=== PATIENT | male | born 1970 | race Caucasian/White ===

== ENCOUNTER 2016-05-04 19:59 | Inpatient (IN) | payer OTHER ==
[2016-05-04 20:48] VITALS: BMI 23.0
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
[2016-05-04] MEDS ORDERED: LOPERAMIDE HCL 2 MG CAPSULE PO PRN (20:55)
[2016-05-04] MEDS ORDERED: MAG HYDROX/AL HYDROX/SIMETH 30 ML UNIT-DOSE CUP PO PRN (20:55)
[2016-05-04] MEDS ORDERED: IBUPROFEN 400 MG TABLET (FP) PO PRN (20:55)
[2016-05-04] MEDS ORDERED: NICOTINE POLACRILEX 2 MG GUM BC PRN (20:55)
[2016-05-04] MEDS ORDERED: guaiFENesin/D-METHORPHAN HB 10 ML UNIT-DOSE CUPS PO PRN (20:55)
[2016-05-04] MEDS ORDERED: MENTHOL/PHENOL 1 EACH UD MM PRN (20:55)
[2016-05-04] MEDS ORDERED: P-EPHED 60MG/TRIPROLIDI 2.5MG TABLET PO PRN (20:55)
[2016-05-04] MEDS ORDERED: METHADONE HCL 10 MG TABLET (FOR DETOX USE ONLY) PO ONE ×2 (20:55→23:00)
[2016-05-04] MEDS ORDERED: diphenhydrAMINE HCL 50 MG CAPSULE PO PRN (20:55)
[2016-05-04] MEDS ORDERED: MAGNESIUM HYDROX 2400MG/30ML ORAL SUSPENSION 30 ML CUP PO PRN (20:55)
[2016-05-04] MEDS ORDERED: ACETAMINOPHEN 325 MG TABLET (FP) PO PRN (20:55)
[2016-05-04] MEDS ORDERED: MAGNESIUM CITRATE 300 ML BOTTLE PO PRN (20:55)
[2016-05-04] MEDS ORDERED: cloNIDine HCL 0.1 MG TABLET PO PRN (20:57)
[2016-05-04] MEDS: RANITIDINE HCL 150 MG TABLET (FP) PO SCH (22:10)
[2016-05-04] MEDS: THIAMINE HCL 100 MG TABLET (FP) PO SCH (22:11)
[2016-05-04] MEDS: chlordiazePOXIDE HCL 25 MG CAPSULE PO SCH (22:11)
[2016-05-05] MEDS: chlordiazePOXIDE HCL 25 MG CAPSULE PO SCH ×4 (06:25→22:04)
[2016-05-05] MEDS: chlordiazePOXIDE HCL 25 MG CAPSULE PO PRN ×2 (08:49→14:01)
[2016-05-05 09:39] LABS: MCH 37.6 pg (25.7-33.7); MCHC 34.1 g/dl (32.0-35.9); MEAN CELL VOLUME 110.3 fl (80-96); MEAN PLT VOLUME 9.2 fl (7.5-11.1); PLATELET COUNT 221 K/MM3 (134-434); RDW 12.7 % (11.9-15.9); WHITE BLOOD COUNT 4.1 K/mm3 (4.0-10.0)
[2016-05-05 09:58] LABS: ALBUMIN 3.1 g/dl (3.4-5.0); ALK PHOS 122 U/L (45-117); ANION GAP 10 (8-16); BILIRUBIN,TOTAL 1.1 mg/dL (0.2-1.0); CALCIUM 8.4 mg/dL (8.5-10.1); CO2 29 mmol/L (21-32); CREATININE 0.6 mg/dL (0.7-1.3); GLUCOSE,RANDOM 78 mg/dL (74-106); SGOT/AST 182 U/L (15-37); SGPT/ALT 71 U/L (12-78); TOT PROT 7.1 g/dl (6.4-8.2)
[2016-05-05] MEDS ORDERED: METHADONE HCL 10 MG TABLET (FOR DETOX USE ONLY) PO SCH (10:00)
--- NOTE | 2016-05-05 10:37 | EKG ---
Test Reason : Blood Pressure : / mmHG Vent. Rate : 064 BPM Atrial Rate : 064 BPM P-R Int : 122 ms QRS Dur : 090 ms QT Int : 412 ms P-R-T Axes : -01 034 030 degrees QTc Int : 425 ms NORMAL SINUS RHYTHM NORMAL ECG NO PREVIOUS ECGS AVAILABLE Confirmed by PARKER HENRY MD ([id number]) on 05/05/2016 10:37:03 AM Referred By: Confirmed By:PARKER HENRY MD
[2016-05-05] MEDS: PRENATAL VITAMINS W/ FOLIC ACID TABLET (FP) PO SCH (10:40)
[2016-05-05] MEDS: RANITIDINE HCL 150 MG TABLET (FP) PO SCH ×2 (10:40→22:04)
[2016-05-05] MEDS: NICOTINE 21 MG/24 HOURS TOPICAL PATCH TD SCH (10:42)
[2016-05-05] MEDS ORDERED: ALBUTEROL SO4 6.7 GM HFA INHALER IH PRN (13:29)
[2016-05-05] MEDS ORDERED: ONDANSETRON *ODT* 4 MG TABLET SL PRN (13:35)
--- NOTE | 2016-05-05 13:35 | PN ---
[facility] CIWA - CIWA Score Nausea/Vomitin-No Nausea/No Vomiting Muscle Tremors: 4-Moderate,w/Arms Extend Anxiety: 4-Mod. Anxious/Guarded Agitation: 4-Moderately Restless Paroxysmal Sweats: 3 Orientation: 0-Oriented Tacttile Disturbances: 0-None Auditory Disturbances: 0-None Visual Disturbances: 0-None Headache: 0-None Present CIWA-Ar Total Score: 15 S COWS - Scale Resting Pulse: 1= [place] 81-100 Sweatin=Flushed/Facial Moisture Restless Observation: 1= Difficult to Sit Still Pupil Size: 0= Normal to Room Light Bone or Joint Aches: 2= Severe Diffuse Aches Runny Nose/ Eye Tearin= Nasal Congestion GI Upset > 30mins: 1= Stomach Cramp Tremor Observation of Outstretched Hands: 2= Slight Tremor Visible Yawning Observation: 2= >3x During Session Anxiety or Irritability: 2=Irritable/Anxious Goose Flesh Skin: 3=Piloerection COWS Score: 17 S Progress Note (SOAP) Subjective: wheezing sweats chills shakes interrupted sleep agitation irritable body aches Objective: 05/05/16 13:33 Vital Signs Temperature 98.8 F 05/05/16 10:14 Pulse Rate 92 H 05/05/16 10:14 Respiratory Rate 18 05/05/16 10:14 Blood Pressure 132/91 05/05/16 10:14 O2 Sat by Pulse Oximetry (%) Laboratory Tests 05/05/16 05/05/16 06:30 06:30 WBC 4.1 D RBC 3.36 L D Hgb 12.6 D Hct 37.0 MCV 110.3 H MCHC 34.1 RDW 12.7 D Plt Count 221 D MPV 9.2 Macrocytosis 4+ Morphology Comment Slide scanned Sodium 142 Potassium 3.4 L Chloride 103 Carbon Dioxide 29 Anion Gap 10 BUN 6 L Creatinine 0.6 L D Creat Clearance w eGFR > 60 Random Glucose 78 D Calcium 8.4 L Total Bilirubin 1.1 H D AST 182 H D ALT 71 Alkaline Phosphatase 122 H Total Protein 7.1 Albumin 3.1 L D K+ 3.4; kdur 40meq x 4 days ordered elevated ast 182; tylenol d/c rest of labs pending re-order labs Assessment: 02/09/17 13:34 withdrawal sx Plan: continue detox increase fluids duoneb ordered albuterol pump prn clonidine 0.1mg bid kdur 40meq x 4 days zofran prn ensure plus 120ml po bid
[2016-05-05] MEDS ORDERED: POTASSIUM CHLORIDE TABS 20 MEQ TABLET.ER (FP) PO ONE (14:00)
[2016-05-05] MEDS: CYCLOBENZAPRINE HCL 10 MG TABLET (FP) PO PRN ×2 (14:00→22:04)
[2016-05-05] MEDS: THIAMINE HCL 100 MG TABLET (FP) PO SCH (22:04)
[2016-05-05] MEDS: cloNIDine HCL 0.1 MG TABLET PO SCH (22:04)
[2016-05-06] MEDS: chlordiazePOXIDE HCL 25 MG CAPSULE PO PRN (03:24)
[2016-05-06] MEDS: chlordiazePOXIDE HCL 25 MG CAPSULE PO SCH ×2 (05:38→10:11)
[2016-05-06] MEDS ORDERED: METHADONE HCL 5 MG TABLET (FOR DETOX USE ONLY) PO SCH (10:00)
[2016-05-06] MEDS ORDERED: POTASSIUM CHLORIDE TABS 20 MEQ TABLET.ER (FP) PO SCH (10:00)
[2016-05-06 10:01] LABS: BASOPHIL 0.6 % (0-2.0); EOSINOPHIL 4.9 % (0-4.5); MCH 37.4 pg (25.7-33.7); MCHC 33.8 g/dl (32.0-35.9); MEAN CELL VOLUME 110.7 fl (80-96); MEAN PLT VOLUME 9.6 fl (7.5-11.1); PLATELET COUNT 199 K/MM3 (134-434); WHITE BLOOD COUNT 4.7 K/mm3 (4.0-10.0)
[2016-05-06] MEDS: RANITIDINE HCL 150 MG TABLET (FP) PO SCH (10:09)
[2016-05-06] MEDS: NICOTINE 21 MG/24 HOURS TOPICAL PATCH TD SCH (10:10)
[2016-05-06] MEDS: PRENATAL VITAMINS W/ FOLIC ACID TABLET (FP) PO SCH (10:10)
[2016-05-06 10:11] LABS: ALBUMIN 2.9 g/dl (3.4-5.0); ANION GAP 7 (8-16); CALCIUM 8.7 mg/dL (8.5-10.1); CO2 32 mmol/L (21-32); GLUCOSE,RANDOM 93 mg/dL (74-106)
[2016-05-06 10:13] LABS: ALK PHOS 126 U/L (45-117); BILIRUBIN,TOTAL 1.9 mg/dL (0.2-1.0); CREATININE 0.6 mg/dL (0.7-1.3); SGOT/AST 116 U/L (15-37); SGPT/ALT 58 U/L (12-78)
[2016-05-06 10:34] VITALS: BP 117/90; PULSE 70; TEMP 97.4
[2016-05-06] MEDS: ALBUTEROL SO4 2.5/IPRATROPIUM 0.5 INH SOL 3 ML VIAL.NEB. NEB SCH (11:01)
--- NOTE | 2016-05-06 11:01 | PN ---
[facility] CIWA - CIWA Score Nausea/Vomitin-No Nausea/No Vomiting Muscle Tremors: 4-Moderate,w/Arms Extend Anxiety: 4-Mod. Anxious/Guarded Agitation: 4-Moderately Restless Paroxysmal Sweats: 3 Orientation: 0-Oriented Tacttile Disturbances: 0-None Auditory Disturbances: 0-None Visual Disturbances: 0-None Headache: 0-None Present CIWA-Ar Total Score: 15 S COWS - Scale Resting Pulse: 0= [place] 80 or Below Sweatin=Flushed/Facial Moisture Restless Observation: 1= Difficult to Sit Still Pupil Size: 0= Normal to Room Light Bone or Joint Aches: 2= Severe Diffuse Aches Runny Nose/ Eye Tearin= Nasal Congestion GI Upset > 30mins: 1= Stomach Cramp Tremor Observation of Outstretched Hands: 1= Tremor [place], Not Seen Yawning Observation: 2= >3x During Session Anxiety or Irritability: 2=Irritable/Anxious Goose Flesh Skin: 0=Smooth Skin COWS Score: 12 [facility] Progress Note (SOAP) Subjective: irritable agitation anxiety sweats interrupted sleep Objective: 05/06/16 11:03 Vital Signs Temperature 97.4 F L 05/06/16 10:34 Pulse Rate 70 05/06/16 10:34 Respiratory Rate 18 05/06/16 10:34 Blood Pressure 117/90 05/06/16 10:34 O2 Sat by Pulse Oximetry (%) Laboratory Tests 05/05/16 05/05/16 05/05/16 06:30 06:30 06:30 WBC 4.1 D RBC 3.36 L D Hgb 12.6 D Hct 37.0 MCV 110.3 H MCHC 34.1 RDW 12.7 D Plt Count 221 D MPV 9.2 Neutrophils % Lymphocytes % Monocytes % Eosinophils % Basophils % Macrocytosis 4+ Morphology Comment Slide scanned Sodium 142 Potassium 3.4 L Chloride 103 Carbon Dioxide 29 Anion Gap 10 BUN 6 L Creatinine 0.6 L D Creat Clearance w eGFR > 60 Random Glucose 78 D Calcium 8.4 L Total Bilirubin 1.1 H D AST 182 H D ALT 71 Alkaline Phosphatase 122 H Total Protein 7.1 Albumin 3.1 L D RPR Titer Nonreactive 05/06/16 05/06/16 07:00 07:00 WBC 4.7 RBC 3.48 L Hgb 13.0 Hct 38.5 MCV 110.7 H MCHC 33.8 RDW 13.0 Plt Count 199 MPV 9.6 Neutrophils % 47.0 Lymphocytes % 39.1 Monocytes % 8.4 Eosinophils % 4.9 H Basophils % 0.6 Macrocytosis Morphology Comment Sodium 143 Potassium 3.9 Chloride 104 Carbon Dioxide 32 Anion Gap 7 L BUN 8 D Creatinine 0.6 L Creat Clearance w eGFR > 60 Random Glucose 93 Calcium 8.7 Total Bilirubin 1.9 H D AST 116 H D ALT 58 Alkaline Phosphatase 126 H Total Protein 7.0 Albumin 2.9 L RPR Titer awake/alert ambulating no acute distress Assessment: 05/06/16 11:05 withdrawal sx Plan: continue detox increase fluids
[2016-05-06] MEDS: cloNIDine HCL 0.1 MG TABLET PO SCH (11:02)
--- NOTE | 2016-05-06 11:16 | PN ---
S Progress Note Note: pt refused to continue detox states i need to leave; signed out AMA.
--- NOTE | 2016-05-06 11:19 | DS ---
[facility] Detox Discharge Summary Admission Date: 05/04/16 Discharge Date: 05/06/16 (pt did not complete detox) - History Present History: Alcohol Dependence, Opioid Dependence - Physical Exam Results Vital Signs: Vital Signs Temperature 97.4 F L 05/06/16 10:34 Pulse Rate 70 05/06/16 10:34 Respiratory Rate 18 05/06/16 10:34 Blood Pressure 117/90 05/06/16 10:34 O2 Sat by Pulse Oximetry (%) - Treatment Hospital Course: Detoxed Safely, Responded well - Medication Discharge Medications: Ambulatory Orders NK [No Known Home Medication] 10/08/14 - Diagnosis (1) Alcohol dependence with uncomplicated withdrawal Current Visit: Yes Status: Chronic (2) GERD (gastroesophageal reflux disease) Current Visit: Yes Status: Chronic Qualifiers: Esophagitis presence: without esophagitis Qualified Code(s): K21.9 - Gastro-esophageal reflux disease without esophagitis (3) Nicotine dependence Current Visit: Yes Status: Chronic Qualifiers: Nicotine product type: cigarettes Substance use status: uncomplicated Qualified Code(s): F17.210 - Nicotine dependence, cigarettes, uncomplicated (4) Opioid dependence with withdrawal Current Visit: Yes Status: Chronic (5) Weight loss Current Visit: Yes Status: Acute (6) Hepatitis C antibody positive in blood Current Visit: Yes Status: Resolved - AMA Did Patient Leave Against Medical Advice: Yes
[2016-05-06] MEDS ORDERED: INFLUENZA VACCINE 60 MCG/0.5 ML (P/F DISP.SYRIN 16-17) IM ONE (12:00)
[2016-05-06] MEDS ORDERED: INFLUENZA VACCINE 45 MCG/0.5 ML (MDV 16-17) IM ONE (12:00)
[2016-05-06] MEDS ORDERED: PNEUMOCOCCAL 23 VACCINE 0.5 ML VIAL IM ONE (12:00)
[2016-05-06] MEDS ORDERED: PNEUMOC 13-VAL CONJ-DIP CRM/PF 0.5 ML DISP.SYRIN IM ONE (12:00)
[2016-05-06] MEDS ORDERED: chlordiazePOXIDE 5 MG CAPSULE PO SCH (23:00)
[2016-05-07] MEDS ORDERED: chlordiazePOXIDE HCL 10 MG CAPSULE PO SCH (23:00)
[2016-05-08] MEDS ORDERED: METHADONE HCL 10 MG TABLET (FOR DETOX USE ONLY) PO SCH (10:00)
[2016-05-09] MEDS ORDERED: METHADONE HCL 5 MG TABLET (FOR DETOX USE ONLY) PO SCH (06:00)
== END 2016-05-06 11:46 | disposition left against medical advice (07) | DRG 770 ==
LOC: YASAS 19:59 → Y6N 21:20
PROVIDERS: ADMIT Internal Medicine; ATTEND Internal Medicine Addiction Medicine
PROC: HZ2ZZZZ Detoxification Services for Substance Abuse Treatment (ICD-10-PCS; principal; 2016-05-06)
DX: F11.23 Opioid dependence with withdrawal (principal); F10.230 Alcohol dependence with withdrawal, uncomplicated; F17.210 Nicotine dependence, cigarettes, uncomplicated; B18.2 Chronic viral hepatitis C; K21.9 Gastro-esophageal reflux disease without esophagitis; R63.4 Abnormal weight loss; Z68.23 Body mass index [BMI] 23.0-23.9, adult
CPT/HCPCS: 36415; 80053; 85025; 85027; 86593; 93005; 93010

== ENCOUNTER 2019-12-02 16:09 | Inpatient (IN) | payer OTHER ==
[2019-12-02 17:20] VITALS: BMI 23.1
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
[2019-12-02] MEDS ORDERED: MAGNESIUM CITRATE 300 ML BOTTLE PO PRN (18:37)
[2019-12-02] MEDS ORDERED: MENTHOL/PHENOL 1 EACH UD MM PRN (18:37)
[2019-12-02] MEDS ORDERED: BISMUTH SUBSALICYLATE 524 MG/30 ML UD PO PRN (18:37)
[2019-12-02] MEDS ORDERED: MAG HYDROX/AL HYDROX/SIMETH 30 ML UNIT-DOSE CUP PO PRN (18:37)
[2019-12-02] MEDS ORDERED: ONDANSETRON *ODT* 4 MG TABLET SL ONE (18:37)
[2019-12-02] MEDS ORDERED: METHOCARBAMOL 500 MG TABLET PO PRN (18:37)
[2019-12-02] MEDS ORDERED: IBUPROFEN 400 MG TABLET (FP) PO PRN (18:37)
[2019-12-02] MEDS ORDERED: NICOTINE POLACRILEX 2 MG GUM BUC PRN (18:37)
[2019-12-02] MEDS ORDERED: MAGNESIUM HYDROX 2400MG/30ML ORAL SUSPENSION 30 ML CUP PO PRN (18:37)
[2019-12-02] MEDS ORDERED: ACETAMINOPHEN 325 MG TABLET (FP) PO PRN (18:37)
[2019-12-02] MEDS ORDERED: guaiFENesin 200 MG/10 ML 10 ML UNIT-DOSE CUPS PO SCH (18:45)
[2019-12-02] MEDS ORDERED: ALBUTEROL SO4 HFA INHALER IH PRN (18:50)
[2019-12-02] MEDS: cloNIDine HCL 0.1 MG TABLET PO PRN (19:27)
[2019-12-02] MEDS: chlordiazePOXIDE HCL 25 MG CAPSULE PO PRN (19:27)
[2019-12-02] MEDS: guaiFENesin 200 MG/10 ML 10 ML UNIT-DOSE CUPS PO SCH ×2 (19:32→23:15)
[2019-12-02] MEDS: BACITRACIN 0.9 GM PACKET TP SCH (19:34)
[2019-12-02] MEDS ORDERED: METHADONE HCL 5 MG TABLET (FOR DETOX USE ONLY) ONE (20:52)
[2019-12-02] MEDS ORDERED: METHADONE HCL 10 MG TABLET (FOR DETOX USE ONLY) ONE (20:53)
[2019-12-02] MEDS ORDERED: METHADONE (DETOX) 20 MG, METHADONE (DETOX) 5 MG PO ONE (22:00)
[2019-12-02] MEDS ORDERED: METHADONE HCL 10 MG TABLET (FOR DETOX USE ONLY) PO ONE (22:00)
[2019-12-02] MEDS: THIAMINE HCL 100 MG TABLET (FP) PO SCH (22:12)
[2019-12-02] MEDS: chlordiazePOXIDE HCL 25 MG CAPSULE PO SCH (22:13)
[2019-12-02] MEDS: MELATONIN 5 MG TABLETS PO SCH (22:17)
[2019-12-03] MEDS: chlordiazePOXIDE HCL 25 MG CAPSULE PO SCH ×4 (06:14→22:29)
[2019-12-03] MEDS: guaiFENesin 200 MG/10 ML 10 ML UNIT-DOSE CUPS PO SCH ×3 (06:16→18:41)
[2019-12-03] MEDS ORDERED: METHADONE HCL 5 MG TABLET (FOR DETOX USE ONLY) ONE (09:00)
[2019-12-03] MEDS ORDERED: METHADONE HCL 10 MG TABLET (FOR DETOX USE ONLY) ONE (09:01)
--- NOTE | 2019-12-03 09:20 | PN ---
[facility] CIWA - CIWA Score Nausea/Vomitin-No Nausea/No Vomiting Muscle Tremors: 3 Anxiety: 2 Agitation: 2 Paroxysmal Sweats: 2 Orientation: 0-Oriented Tacttile Disturbances: 0-None Auditory Disturbances: 0-None Visual Disturbances: 0-None Headache: 0-None Present CIWA-Ar Total Score: 9 BHS COWS - Scale Resting Pulse: 0= [place] 80 or Below Sweatin= Streaming Sweat Restless Observation: 1= Difficult to Sit Still Pupil Size: 0= Normal to Room Light Bone or Joint Aches: 1= Mild Discomfort Runny Nose/ Eye Tearin= Nasal Congestion GI Upset > 30mins: 1= Stomach Cramp Tremor Observation of Outstretched Hands: 1= Tremor [place], Not Seen Yawning Observation: 1= 1-2x During Session Anxiety or Irritability: 2=Irritable/Anxious Goose Flesh Skin: 0=Smooth Skin COWS Score: 12 S Progress Note (SOAP) Subjective: sweats shakes body aches interrupted sleep agitation anxiety nausea Objective: 12/03/19 09:19 Vital Signs Temperature 98.2 F 12/03/19 05:59 Pulse Rate 58 L 12/03/19 05:59 Respiratory Rate 18 12/03/19 05:59 Blood Pressure 138/78 12/03/19 05:59 O2 Sat by Pulse Oximetry (%) 98 12/03/19 05:59 labs pending aaox3 ambulating no acute distress Assessment: 12/03/19 09:20 withdrawals Plan: continue detox increase fluids pending labs
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
[2019-12-03] MEDS ORDERED: METHADONE (DETOX) 20 MG, METHADONE (DETOX) 5 MG PO ONE (10:00)
[2019-12-03] MEDS: PRENATAL VITAMINS W/ FOLIC ACID TABLET (FP) PO SCH (10:26)
[2019-12-03] MEDS: NICOTINE 21 MG/24 HOURS TOPICAL PATCH TD SCH (10:26)
[2019-12-03] MEDS: BACITRACIN 0.9 GM PACKET TP SCH (10:27)
--- NOTE | 2019-12-03 11:55 | EKG ---
Test Reason : Blood Pressure : / mmHG Vent. Rate : 052 BPM Atrial Rate : 052 BPM P-R Int : 146 ms QRS Dur : 086 ms QT Int : 482 ms P-R-T Axes : 031 027 038 degrees QTc Int : 448 ms SINUS BRADYCARDIA OTHERWISE NORMAL ECG Confirmed by MD MARY LOU, JACKSON ([id number]) on 12/03/2019 11:54:30 AM Referred By: Confirmed By:JACKSON BARRETO MD
[2019-12-03 12:26] LABS: HEMATOCRIT 38.8 % (35.4-49); HEMOGLOBIN 13.2 GM/dL (11.7-16.9); MCH 35.8 pg (25.7-33.7); MCHC 34.1 g/dl (32.0-35.9); MEAN CELL VOLUME 105.1 fl (80-96); MEAN PLT VOLUME 8.8 fl (7.5-11.1); PLATELET COUNT 167 K/MM3 (134-434); RBC 3.69 M/mm3 (4.00-5.60); RDW 16.6 % (11.9-15.9); WHITE BLOOD COUNT 6.9 K/mm3 (4.0-10.0)
[2019-12-03 12:40] LABS: ALBUMIN 3.3 g/dl (3.4-5.0); BILIRUBIN,TOTAL 1.7 mg/dL (0.2-1); BLOOD UREA NITROGEN 13.2 mg/dL (7-18); CALCIUM 8.7 mg/dL (8.5-10.1); CREATININE 0.8 mg/dL (0.55-1.3); TOT PROT 7.2 g/dl (6.4-8.2)
[2019-12-03] MEDS: GABAPENTIN 300 MG CAPSULE PO SCH ×2 (15:17→22:29)
[2019-12-03 16:21] LABS: PH,URINE 6.5 (5.0-8.0); URINE APPEARANCE CLOUDY; URINE BILIRUBIN 1+ (NEGATIVE); URINE COLOR DK YELLOW; URINE GLUCOSE (UA) NEGATIVE (NEGATIVE); URINE KETONE NEGATIVE (NEGATIVE); URINE LEUK ESTERASE NEGATIVE (NEGATIVE); URINE NITRITE NEGATIVE (NEGATIVE); URINE PROTEIN NEGATIVE (NEGATIVE); URINE UROBILINOGEN 4.0 E.U/dl mg/dL (0.2-1.0)
[2019-12-03] MEDS: chlordiazePOXIDE HCL 25 MG CAPSULE PO PRN (19:19)
[2019-12-03] MEDS: THIAMINE HCL 100 MG TABLET (FP) PO SCH (22:29)
[2019-12-03] MEDS: AMITRIPTYLINE HCL 25 MG TABLET PO SCH (22:29)
[2019-12-03] MEDS: MELATONIN 5 MG TABLETS PO SCH (22:30)
[2019-12-03] MEDS: ACETAMINOPHEN 325 MG TABLET (FP) PO PRN (22:55)
[2019-12-03] MEDS: cloNIDine HCL 0.1 MG TABLET PO PRN (23:51)
[2019-12-04] MEDS: guaiFENesin 200 MG/10 ML 10 ML UNIT-DOSE CUPS PO SCH ×4 (00:10→19:02)
[2019-12-04] MEDS: GABAPENTIN 300 MG CAPSULE PO SCH ×3 (06:28→22:23)
[2019-12-04] MEDS: chlordiazePOXIDE HCL 25 MG CAPSULE PO SCH ×4 (06:28→22:23)
[2019-12-04] MEDS ORDERED: METHADONE HCL 10 MG TABLET (FOR DETOX USE ONLY) PO ONE (10:00)
[2019-12-04] MEDS: PRENATAL VITAMINS W/ FOLIC ACID TABLET (FP) PO SCH (10:07)
[2019-12-04] MEDS: BACITRACIN 0.9 GM PACKET TP SCH (10:07)
[2019-12-04] MEDS: NICOTINE 21 MG/24 HOURS TOPICAL PATCH TD SCH (10:07)
--- NOTE | 2019-12-04 10:43 | PN ---
S CIWA - CIWA Score Nausea/Vomitin-No Nausea/No Vomiting Muscle Tremors: 2 Anxiety: 1-Mildly Anxious Agitation: 2 Paroxysmal Sweats: 2 Orientation: 0-Oriented Tacttile Disturbances: 0-None Auditory Disturbances: 0-None Visual Disturbances: 0-None Headache: 0-None Present CIWA-Ar Total Score: 7 BHS COWS - Scale Resting Pulse: 0= [place] 80 or Below Sweatin= Chills/Flushing Restless Observation: 1= Difficult to Sit Still Pupil Size: 0= Normal to Room Light Bone or Joint Aches: 1= Mild Discomfort Runny Nose/ Eye Tearin= Nasal Congestion GI Upset > 30mins: 0= None Tremor Observation of Outstretched Hands: 0= None Yawning Observation: 1= 1-2x During Session Anxiety or Irritability: 1=Feels Anxious/Irritable Goose Flesh Skin: 0=Smooth Skin COWS Score: 6 BHS Progress Note (SOAP) Subjective: headache body aches sweats irritable Objective: 12/04/19 10:40 Vital Signs Temperature 97.8 F 12/04/19 09:03 Pulse Rate 53 L 12/04/19 09:03 Respiratory Rate 19 12/04/19 09:03 Blood Pressure 111/59 L 12/04/19 09:03 O2 Sat by Pulse Oximetry (%) 96 12/04/19 09:03 Laboratory Tests 12/03/19 12/03/19 12/03/19 07:45 07:45 07:45 WBC 6.9 RBC 3.69 L Hgb 13.2 Hct 38.8 MCV 105.1 H MCH 35.8 H MCHC 34.1 RDW 16.6 H Plt Count 167 MPV 8.8 Sodium 138 Potassium 4.0 Chloride 99 Carbon Dioxide 34 H Anion Gap 4 L BUN 13.2 Creatinine 0.8 Est GFR (CKD-EPI)AfAm 121.57 Est GFR (CKD-EPI)NonAf 104.89 Random Glucose 87 Calcium 8.7 Total Bilirubin 1.7 H AST 68 H ALT 40 Alkaline Phosphatase 123 H Total Protein 7.2 Albumin 3.3 L Urine Color Urine Appearance Urine pH Ur Specific [place] Urine Protein Urine Glucose (UA) Urine Ketones Urine Blood Urine Nitrite Urine Bilirubin Urine Urobilinogen Ur Leukocyte Esterase Syphilis Serology Non-reactive 12/03/19 09:50 WBC RBC Hgb Hct MCV MCH MCHC RDW Plt Count MPV Sodium Potassium Chloride Carbon Dioxide Anion Gap BUN Creatinine Est GFR (CKD-EPI)AfAm Est GFR (CKD-EPI)NonAf Random Glucose Calcium Total Bilirubin AST ALT Alkaline Phosphatase Total Protein Albumin Urine Color Dk yellow Urine Appearance Cloudy Urine pH 6.5 Ur Specific [place] 1.018 Urine Protein Negative Urine Glucose (UA) Negative Urine Ketones Negative Urine Blood Negative Urine Nitrite Negative Urine Bilirubin 1+ H Urine Urobilinogen 4.0 e.u/dl Ur Leukocyte Esterase Negative Syphilis Serology labs noted aaox3 ambulating no acute distress Assessment: 12/04/19 10:42 withdrawal sx Plan: continue detox
[2019-12-04] MEDS: cloNIDine HCL 0.1 MG TABLET PO PRN (17:58)
[2019-12-04] MEDS: chlordiazePOXIDE HCL 25 MG CAPSULE PO PRN (17:58)
[2019-12-04] MEDS: THIAMINE HCL 100 MG TABLET (FP) PO SCH (22:23)
[2019-12-04] MEDS: MELATONIN 5 MG TABLETS PO SCH (22:23)
[2019-12-04] MEDS: AMITRIPTYLINE HCL 25 MG TABLET PO SCH (22:23)
[2019-12-05] MEDS ORDERED: chlordiazePOXIDE HCL 10 MG CAPSULE PO PRN
[2019-12-05] MEDS: chlordiazePOXIDE HCL 10 MG CAPSULE PO SCH ×4 (05:44→22:06)
[2019-12-05] MEDS: GABAPENTIN 300 MG CAPSULE PO SCH ×3 (05:44→22:06)
[2019-12-05] MEDS: guaiFENesin 200 MG/10 ML 10 ML UNIT-DOSE CUPS PO SCH ×4 (05:44→17:18)
[2019-12-05] MEDS ORDERED: METHADONE HCL 5 MG TABLET (FOR DETOX USE ONLY) ONE (08:30)
[2019-12-05] MEDS ORDERED: METHADONE HCL 10 MG TABLET (FOR DETOX USE ONLY) ONE (08:31)
[2019-12-05] MEDS ORDERED: METHADONE (DETOX) 10 MG, METHADONE (DETOX) 5 MG PO ONE (10:00)
[2019-12-05] MEDS: PRENATAL VITAMINS W/ FOLIC ACID TABLET (FP) PO SCH (10:14)
[2019-12-05] MEDS: BACITRACIN 0.9 GM PACKET TP SCH (10:14)
[2019-12-05] MEDS: NICOTINE 21 MG/24 HOURS TOPICAL PATCH TD SCH (10:14)
--- NOTE | 2019-12-05 12:24 | PN ---
S CIWA - CIWA Score Nausea/Vomitin-No Nausea/No Vomiting Muscle Tremors: 1-None Visible, but [place] Anxiety: 1-Mildly Anxious Agitation: 1-Slight > Activity Paroxysmal Sweats: 1-Minimal Palms Moist Orientation: 0-Oriented Tacttile Disturbances: 0-None Auditory Disturbances: 0-None Visual Disturbances: 0-None Headache: 0-None Present CIWA-Ar Total Score: 4 BHS COWS - Scale Resting Pulse: 0= [place] 80 or Below Sweatin= No chills or [place]ushing Restless Observation: 1= Difficult to Sit Still Pupil Size: 0= Normal to Room Light Bone or Joint Aches: 1= Mild Discomfort Runny Nose/ Eye Tearin= None GI Upset > 30mins: 0= None Tremor Observation of Outstretched Hands: 1= Tremor [place], Not Seen Yawning Observation: 1= 1-2x During Session Anxiety or Irritability: 1=Feels Anxious/Irritable Goose Flesh Skin: 0=Smooth Skin COWS Score: 5 S Progress Note (SOAP) Subjective: sweats body aches interrupted sleep Objective: 12/05/19 12:25 Vital Signs Temperature 97.3 F L 12/05/19 09:39 Pulse Rate 72 12/05/19 09:39 Respiratory Rate 19 12/05/19 09:39 Blood Pressure 120/73 12/05/19 09:39 O2 Sat by Pulse Oximetry (%) 99 12/05/19 09:39 Laboratory Tests 12/03/19 12/03/19 12/03/19 07:45 07:45 07:45 WBC 6.9 RBC 3.69 L Hgb 13.2 Hct 38.8 MCV 105.1 H MCH 35.8 H MCHC 34.1 RDW 16.6 H Plt Count 167 MPV 8.8 Sodium 138 Potassium 4.0 Chloride 99 Carbon Dioxide 34 H Anion Gap 4 L BUN 13.2 Creatinine 0.8 Est GFR (CKD-EPI)AfAm 121.57 Est GFR (CKD-EPI)NonAf 104.89 Random Glucose 87 Calcium 8.7 Total Bilirubin 1.7 H AST 68 H ALT 40 Alkaline Phosphatase 123 H Total Protein 7.2 Albumin 3.3 L Urine Color Urine Appearance Urine pH Ur Specific [place] Urine Protein Urine Glucose (UA) Urine Ketones Urine Blood Urine Nitrite Urine Bilirubin Urine Urobilinogen Ur Leukocyte Esterase Syphilis Serology Non-reactive 12/03/19 09:50 WBC RBC Hgb Hct MCV MCH MCHC RDW Plt Count MPV Sodium Potassium Chloride Carbon Dioxide Anion Gap BUN Creatinine Est GFR (CKD-EPI)AfAm Est GFR (CKD-EPI)NonAf Random Glucose Calcium Total Bilirubin AST ALT Alkaline Phosphatase Total Protein Albumin Urine Color Dk yellow Urine Appearance Cloudy Urine pH 6.5 Ur Specific [place] 1.018 Urine Protein Negative Urine Glucose (UA) Negative Urine Ketones Negative Urine Blood Negative Urine Nitrite Negative Urine Bilirubin 1+ H Urine Urobilinogen 4.0 e.u/dl Ur Leukocyte Esterase Negative Syphilis Serology labs noted covid testing pending aaox3 ambulating no acute distress Assessment: 12/05/19 12:26 withdrawals Plan: continue detox
[2019-12-05] MEDS: THIAMINE HCL 100 MG TABLET (FP) PO SCH (22:06)
[2019-12-05] MEDS: AMITRIPTYLINE HCL 25 MG TABLET PO SCH (22:06)
[2019-12-05] MEDS: MELATONIN 5 MG TABLETS PO SCH (22:06)
[2019-12-06] MEDS: chlordiazePOXIDE HCL 10 MG CAPSULE PO SCH ×2 (05:22→17:58)
[2019-12-06] MEDS: GABAPENTIN 300 MG CAPSULE PO SCH ×2 (05:22→14:20)
[2019-12-06] MEDS ORDERED: METHADONE HCL 10 MG TABLET (FOR DETOX USE ONLY) PO ONE (10:00)
[2019-12-06] MEDS: BACITRACIN 0.9 GM PACKET TP SCH (10:45)
[2019-12-06] MEDS: PRENATAL VITAMINS W/ FOLIC ACID TABLET (FP) PO SCH (10:45)
[2019-12-06] MEDS: NICOTINE 21 MG/24 HOURS TOPICAL PATCH TD SCH (10:46)
[2019-12-06 13:51] VITALS: BP 117/74; PULSE 96; TEMP 97.8
--- NOTE | 2019-12-06 14:35 | PN ---
[facility] CIWA - CIWA Score Nausea/Vomitin-No Nausea/No Vomiting Muscle Tremors: 1-None Visible, but [place] Anxiety: 2 Agitation: 2 Paroxysmal Sweats: No Perspiration Orientation: 0-Oriented Tacttile Disturbances: 1-Very Mild Itch/Numbness Auditory Disturbances: 0-None Visual Disturbances: 0-None Headache: 1-Very Mild CIWA-Ar Total Score: 7 BHS COWS - Scale Resting Pulse: 1= [place] 81-100 Sweatin= No chills or [place] Restless Observation: 0= Sits Still Pupil Size: 0= Normal to Room Light Bone or Joint Aches: 1= Mild Discomfort Runny Nose/ Eye Tearin= Nasal Congestion GI Upset > 30mins: 1= Stomach Cramp Tremor Observation of Outstretched Hands: 1= Tremor [place], Not Seen Yawning Observation: 1= 1-2x During Session Anxiety or Irritability: 2=Irritable/Anxious Goose Flesh Skin: 0=Smooth Skin COWS Score: 8 [facility] Progress Note (SOAP) Subjective: alert,irritable,anxious ,interrupted sleep,aching pain, Objective: 12/06/19 14:33 Vital Signs Temperature 97.8 F 12/06/19 12:58 Pulse Rate 96 H 12/06/19 12:58 Respiratory Rate 16 12/06/19 12:58 Blood Pressure 117/74 12/06/19 12:58 O2 Sat by Pulse Oximetry (%) 99 12/06/19 12:58 Assessment: 12/06/19 14:34 withdrawal symptom Plan: continue detox methadone and librium regimen,discharge in am
--- NOTE | 2019-12-06 15:10 | PN ---
[facility] Progress Note (SOAP) Subjective: feeling better Objective: 12/06/19 15:09 Vital Signs Temperature 97.8 F 12/06/19 12:58 Pulse Rate 96 H 12/06/19 12:58 Respiratory Rate 16 12/06/19 12:58 Blood Pressure 117/74 12/06/19 12:58 O2 Sat by Pulse Oximetry (%) 99 12/06/19 12:58 aaox3 ambulating no acute distress Assessment: 12/06/19 15:09 no s/s of withdrawals Plan: d/c today to rehab
--- NOTE | 2019-12-06 15:11 | DS ---
[facility] Detox Discharge Summary Admission Date: 12/02/19 Discharge Date: 12/06/19 - History Present History: Alcohol Dependence, Cannabis Dependence, Cocaine Dependence, Opioid Dependence - Physical Exam Results Vital Signs: Vital Signs Temperature 97.8 F 12/06/19 12:58 Pulse Rate 96 H 12/06/19 12:58 Respiratory Rate 16 12/06/19 12:58 Blood Pressure 117/74 12/06/19 12:58 O2 Sat by Pulse Oximetry (%) 99 12/06/19 12:58 Pertinent Admission Physical Exam Findings: Vital Signs Temperature 97.8 F 12/06/19 12:58 Pulse Rate 96 H 12/06/19 12:58 Respiratory Rate 16 12/06/19 12:58 Blood Pressure 117/74 12/06/19 12:58 O2 Sat by Pulse Oximetry (%) 99 12/06/19 12:58 Laboratory Tests 12/02/19 12/03/19 12/03/19 19:00 07:45 07:45 WBC 6.9 RBC 3.69 L Hgb 13.2 Hct 38.8 MCV 105.1 H MCH 35.8 H MCHC 34.1 RDW 16.6 H Plt Count 167 MPV 8.8 Sodium 138 Potassium 4.0 Chloride 99 Carbon Dioxide 34 H Anion Gap 4 L BUN 13.2 Creatinine 0.8 Est GFR (CKD-EPI)AfAm 121.57 Est GFR (CKD-EPI)NonAf 104.89 Random Glucose 87 Calcium 8.7 Total Bilirubin 1.7 H AST 68 H ALT 40 Alkaline Phosphatase 123 H Total Protein 7.2 Albumin 3.3 L Urine Color Urine Appearance Urine pH Ur Specific [place] Urine Protein Urine Glucose (UA) Urine Ketones Urine Blood Urine Nitrite Urine Bilirubin Urine Urobilinogen Ur Leukocyte Esterase Syphilis Serology COVID-19 (TEZ) Not detected 12/03/19 12/03/19 07:45 09:50 WBC RBC Hgb Hct MCV MCH MCHC RDW Plt Count MPV Sodium Potassium Chloride Carbon Dioxide Anion Gap BUN Creatinine Est GFR (CKD-EPI)AfAm Est GFR (CKD-EPI)NonAf Random Glucose Calcium Total Bilirubin AST ALT Alkaline Phosphatase Total Protein Albumin Urine Color Dk yellow Urine Appearance Cloudy Urine pH 6.5 Ur Specific [place] 1.018 Urine Protein Negative Urine Glucose (UA) Negative Urine Ketones Negative Urine Blood Negative Urine Nitrite Negative Urine Bilirubin 1+ H Urine Urobilinogen 4.0 e.u/dl Ur Leukocyte Esterase Negative Syphilis Serology Non-reactive COVID-19 (TEZ) aaox3 ambulating no acute distress lungs CTA - Treatment Hospital Course: Detox Protocol Followed, Detoxed Safely, Responded well, Di scharged Condition Good, Rehab Referral Accepted - Medication Discharge Medications: Ambulatory Orders Albuterol Sulfate Inhaler - [Ventolin Hfa Inhaler -] 1 - 2 inh PO QID 08/27/16 - Diagnosis (1) Alcohol dependence with uncomplicated withdrawal Current Visit: Yes Status: Chronic (2) Alcohol intoxication Current Visit: Yes Status: Chronic Qualifiers: Complication of substance-induced condition: uncomplicated Qualified Code(s): F10.920 - Alcohol use, unspecified with intoxication, uncomplicated (3) Cannabis dependence, uncomplicated Current Visit: Yes Status: Acute (4) Cocaine dependence, uncomplicated Current Visit: Yes Status: Acute (5) Laceration Current Visit: Yes Status: Acute (6) Opioid dependence with withdrawal Current Visit: Yes Status: Chronic (7) Substance induced mood disorder Current Visit: Yes Status: Acute (8) Substance-induced anxiety disorder Current Visit: Yes Status: Acute (9) Substance-induced sleep disorder Current Visit: Yes Status: Acute (10) History of degenerative disc disease Current Visit: Yes Status: Chronic (11) Murmur, cardiac Current Visit: Yes Status: Chronic (12) Nicotine dependence Current Visit: Yes Status: Chronic Qualifiers: Nicotine product type: cigarettes Substance use status: uncomplicated Qualified Code(s): F17.210 - Nicotine dependence, cigarettes, uncomplicated (13) Weight loss Current Visit: No Status: Acute (14) GERD (gastroesophageal reflux disease) Current Visit: No Status: Chronic Qualifiers: Esophagitis presence: without esophagitis Qualified Code(s): K21.9 - Gastro-esophageal reflux disease without esophagitis - AMA Did Patient Leave Against Medical Advice: No
[2019-12-06] MEDS: ACETAMINOPHEN 325 MG TABLET (FP) PO PRN (18:00)
[2019-12-07] MEDS ORDERED: chlordiazePOXIDE HCL 10 MG CAPSULE PO ONE (05:00)
[2019-12-07] MEDS ORDERED: METHADONE HCL 5 MG TABLET (FOR DETOX USE ONLY) PO ONE (06:00)
== END 2019-12-06 18:12 | disposition other institution (70) | DRG 773 ==
LOC: YASAS 16:09 → Y6N 18:30
PROVIDERS: ADMIT Allergy & Immunology; ATTEND Allergy & Immunology
PROC: HZ2ZZZZ Detoxification Services for Substance Abuse Treatment (ICD-10-PCS; principal; 2019-12-02)
DX: F11.23 Opioid dependence with withdrawal (principal); F10.230 Alcohol dependence with withdrawal, uncomplicated; F10.220 Alcohol dependence with intoxication, uncomplicated; F14.20 Cocaine dependence, uncomplicated; F12.10 Cannabis abuse, uncomplicated; F13.10 Sedative, hypnotic or anxiolytic abuse, uncomplicated; F17.210 Nicotine dependence, cigarettes, uncomplicated; F19.282 Other psychoactive substance dependence with psychoactive substance-induced sleep disorder; F19.280 Other psychoactive substance dependence with psychoactive substance-induced anxiety disorder; F19.24 Other psychoactive substance dependence with psychoactive substance-induced mood disorder; J45.909 Unspecified asthma, uncomplicated; K21.9 Gastro-esophageal reflux disease without esophagitis; R63.4 Abnormal weight loss; Z68.23 Body mass index [BMI] 23.0-23.9, adult; Z87.39 Personal history of other diseases of the musculoskeletal system and connective tissue; Z86.19 Personal history of other infectious and parasitic diseases; Z87.828 Personal history of other (healed) physical injury and trauma; Z98.890 Other specified postprocedural states; Z56.0 Unemployment, unspecified; Z59.0 Homelessness
CPT/HCPCS: 36415; 80053; 81003; 85027; 86780; 93005; 93010; J0735; U0003

== ENCOUNTER 2019-12-06 18:15 | Inpatient (IN) | payer OTHER ==
--- NOTE | 2019-12-06 15:22 | HP ---
[facility] Rehab Assess/Revision - Admission History Admitted to Rehab from[facility] - Findings Detox History & Physical reviewed: Yes Concur with findings: Yes Inpatient Rehab Admission - Rehab Decision to Admit Inpatient rehab admission?: Yes - Initial Determination Are CD services needed?: Yes Free of communicable disease: Yes Not in need of hospitalization: Yes - Rehab Admission Criteria Previous failed treatment: Yes Poor recovery environment: Yes Comorbidities: Yes Lacks judgement: Yes Patient is meeting Inpatient Rehab admission criteria:: Yes
[~2019-12-06 18:15] MED LIST: LOPERAMIDE HCL 2 MG CAPSULE PO PRN; MAG HYDROX/AL HYDROX/SIMETH 30 ML UNIT-DOSE CUP PO PRN; MAGNESIUM CITRATE 300 ML BOTTLE PO PRN; MAGNESIUM HYDROX 2400MG/30ML ORAL SUSPENSION 30 ML CUP PO PRN; MENTHOL/PHENOL 1 EACH UD MM PRN; P-EPHED 60MG/TRIPROLIDI 2.5MG TABLET PO PRN; guaiFENesin 200 MG/10 ML 10 ML UNIT-DOSE CUPS PO PRN
[2019-12-06] MEDS: ALBUTEROL SO4 HFA INHALER IH SCH ×2 (19:32→22:03)
[2019-12-06] MEDS ORDERED: AMITRIPTYLINE HCL 50 MG TABLET PO SCH (22:00)
[2019-12-06] MEDS: THIAMINE HCL 100 MG TABLET (FP) PO SCH (22:04)
[2019-12-06] MEDS: hydrOXYzine PAMOATE 25 MG CAPSULE (FP) PO PRN (22:04)
[2019-12-06] MEDS: MELATONIN 5 MG TABLETS PO SCH (22:04)
[2019-12-06] MEDS: GABAPENTIN 300 MG CAPSULE PO SCH (22:04)
[2019-12-06] MEDS: AMITRIPTYLINE HCL 25 MG TABLET PO SCH (22:59)
[2019-12-07] MEDS: ACETAMINOPHEN 325 MG TABLET (FP) PO PRN ×2 (04:40→19:32)
[2019-12-07] MEDS: GABAPENTIN 300 MG CAPSULE PO SCH ×3 (06:58→21:17)
[2019-12-07] MEDS: ALBUTEROL SO4 HFA INHALER IH SCH ×2 (08:35→12:16)
[2019-12-07] MEDS: PRENATAL VITAMINS W/ FOLIC ACID TABLET (FP) PO SCH (09:59)
[2019-12-07] MEDS: hydrOXYzine PAMOATE 25 MG CAPSULE (FP) PO PRN ×2 (10:00→21:17)
[2019-12-07] MEDS: NICOTINE 21 MG/24 HOURS TOPICAL PATCH TD SCH (10:00)
[2019-12-07] MEDS: MELATONIN 5 MG TABLETS PO SCH (21:17)
[2019-12-07] MEDS: THIAMINE HCL 100 MG TABLET (FP) PO SCH (21:17)
[2019-12-07] MEDS: AMITRIPTYLINE HCL 25 MG TABLET PO SCH (21:17)
[2019-12-08] MEDS: ACETAMINOPHEN 325 MG TABLET (FP) PO PRN ×2 (04:50→23:13)
[2019-12-08] MEDS: GABAPENTIN 300 MG CAPSULE PO SCH ×3 (06:35→21:18)
[2019-12-08] MEDS: PRENATAL VITAMINS W/ FOLIC ACID TABLET (FP) PO SCH (10:07)
[2019-12-08] MEDS: NICOTINE 21 MG/24 HOURS TOPICAL PATCH TD SCH (10:08)
[2019-12-08] MEDS: hydrOXYzine PAMOATE 25 MG CAPSULE (FP) PO PRN ×3 (12:08→21:18)
[2019-12-08] MEDS: IBUPROFEN 400 MG TABLET (FP) PO PRN (17:36)
[2019-12-08] MEDS: AMITRIPTYLINE HCL 25 MG TABLET PO SCH (21:17)
[2019-12-08] MEDS: THIAMINE HCL 100 MG TABLET (FP) PO SCH (21:18)
[2019-12-08] MEDS: MELATONIN 5 MG TABLETS PO SCH (21:18)
[2019-12-09] MEDS: GABAPENTIN 300 MG CAPSULE PO SCH ×3 (06:15→21:04)
[2019-12-09] MEDS: hydrOXYzine PAMOATE 25 MG CAPSULE (FP) PO PRN ×4 (06:16→19:51)
[2019-12-09] MEDS: PRENATAL VITAMINS W/ FOLIC ACID TABLET (FP) PO SCH (10:32)
[2019-12-09] MEDS: NICOTINE 21 MG/24 HOURS TOPICAL PATCH TD SCH (10:34)
[2019-12-09] MEDS: ACETAMINOPHEN 325 MG TABLET (FP) PO PRN ×3 (10:34→21:05)
[2019-12-09] MEDS ORDERED: LIDOCAINE VISCOUS 2% ORAL/TOP 20 ML UNIT-DOSE CUP MM PRN (12:09)
--- NOTE | 2019-12-09 12:09 | PN ---
[facility] Progress Note (SOAP) Subjective: c/o tooth ache on upper right molar. Hx of tooth extraction on left lower jaw one yr ago and hole in current achy tooth. Also requesting HIV screening test. Objective: 12/09/19 12:12 Vital Signs - 24 hr 12/08/19 12/09/19 20:10 07:24 Temperature 97.1 F L Pulse Rate 79 Respiratory 18 Rate Blood Pressure 105/67 O2 Sat by Pulse 96 96 Oximetry (%) Alert o x 3 nad Oob ambulating with steady gait dental:decaying last right upper molar with slight redness to gum. Assessment: 12/09/19 12:12 A:Poor dental hygiene tooth decay Plan: Amoxicillin 500 mg po tid x 10 days lidocaine viscous prn as directed motrin prn as directed HIV Screening lab in a.m D/w pt to follow up with dentist after discharge from rehab.
[2019-12-09] MEDS ORDERED: MELATONIN 5 MG TABLETS PO SCH (12:14)
--- NOTE | 2019-12-09 12:19 | PN ---
[facility] Progress Note Note: Pt requesting to see psych for re-eval of Insomnia. S/P detox [address] [place]. Current psych meds from detox are Gabapentin 300 mg po TID and Elavil 50 mg po HS. Vital Signs - 24 hr 12/08/19 12/09/19 20:10 07:24 Temperature 97.1 F L Pulse Rate 79 Respiratory 18 Rate Blood Pressure 105/67 O2 Sat by Pulse 96 96 Oximetry (%) to follow up with psych consult
[2019-12-09] MEDS: AMOXICILLIN 500 MG CAPSULE (FP) PO SCH ×2 (14:02→21:04)
[2019-12-09] MEDS: ALBUTEROL SO4 HFA INHALER IH PRN (21:02)
[2019-12-09] MEDS: MELATONIN 5 MG TABLETS PO SCH (21:04)
[2019-12-09] MEDS: THIAMINE HCL 100 MG TABLET (FP) PO SCH (21:04)
[2019-12-09] MEDS: AMITRIPTYLINE HCL 25 MG TABLET PO SCH (21:04)
[2019-12-10] MEDS: hydrOXYzine PAMOATE 25 MG CAPSULE (FP) PO PRN ×2 (02:44→09:27)
[2019-12-10] MEDS: IBUPROFEN 400 MG TABLET (FP) PO PRN ×2 (02:44→17:28)
[2019-12-10] MEDS: GABAPENTIN 300 MG CAPSULE PO SCH ×2 (06:27→15:00)
[2019-12-10] MEDS: AMOXICILLIN 500 MG CAPSULE (FP) PO SCH ×3 (06:27→21:21)
[2019-12-10] MEDS: ACETAMINOPHEN 325 MG TABLET (FP) PO PRN ×3 (09:26→21:21)
[2019-12-10] MEDS: PRENATAL VITAMINS W/ FOLIC ACID TABLET (FP) PO SCH (09:27)
[2019-12-10] MEDS: NICOTINE 21 MG/24 HOURS TOPICAL PATCH TD SCH (09:28)
[2019-12-10] MEDS: hydrOXYzine PAMOATE 50 MG CAPSULE (FP) PO PRN ×2 (15:01→19:13)
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
[2019-12-10] MEDS: ALBUTEROL SO4 HFA INHALER IH PRN (21:20)
[2019-12-10] MEDS: MELATONIN 5 MG TABLETS PO SCH (21:21)
[2019-12-10] MEDS: GABAPENTIN 400 MG CAPSULE PO SCH (21:21)
[2019-12-10] MEDS: AMITRIPTYLINE HCL 25 MG TABLET PO SCH (21:21)
[2019-12-10] MEDS: THIAMINE HCL 100 MG TABLET (FP) PO SCH (21:21)
[2019-12-11] MEDS: hydrOXYzine PAMOATE 50 MG CAPSULE (FP) PO PRN ×3 (03:49→21:30)
[2019-12-11] MEDS: IBUPROFEN 400 MG TABLET (FP) PO PRN ×2 (03:49→15:10)
[2019-12-11] MEDS: AMOXICILLIN 500 MG CAPSULE (FP) PO SCH ×3 (06:30→21:30)
[2019-12-11] MEDS: GABAPENTIN 400 MG CAPSULE PO SCH ×3 (06:30→21:30)
[2019-12-11] MEDS: NICOTINE 21 MG/24 HOURS TOPICAL PATCH TD SCH (12:34)
[2019-12-11] MEDS: PRENATAL VITAMINS W/ FOLIC ACID TABLET (FP) PO SCH (12:35)
[2019-12-11] MEDS: AMITRIPTYLINE HCL 25 MG TABLET PO SCH (21:30)
[2019-12-11] MEDS: MELATONIN 5 MG TABLETS PO SCH (21:31)
[2019-12-11] MEDS: THIAMINE HCL 100 MG TABLET (FP) PO SCH (21:31)
[2019-12-12] MEDS: IBUPROFEN 400 MG TABLET (FP) PO PRN (04:33)
[2019-12-12] MEDS: hydrOXYzine PAMOATE 50 MG CAPSULE (FP) PO PRN ×4 (04:34→19:50)
[2019-12-12] MEDS: GABAPENTIN 400 MG CAPSULE PO SCH ×3 (06:32→21:45)
[2019-12-12] MEDS: AMOXICILLIN 500 MG CAPSULE (FP) PO SCH ×3 (06:32→21:44)
[2019-12-12] MEDS: ACETAMINOPHEN 325 MG TABLET (FP) PO PRN ×3 (08:59→19:49)
[2019-12-12] MEDS: NICOTINE 21 MG/24 HOURS TOPICAL PATCH TD SCH (09:00)
[2019-12-12] MEDS: PRENATAL VITAMINS W/ FOLIC ACID TABLET (FP) PO SCH (09:00)
[2019-12-12] MEDS: AMITRIPTYLINE HCL 25 MG TABLET PO SCH (21:44)
[2019-12-12] MEDS: THIAMINE HCL 100 MG TABLET (FP) PO SCH (21:45)
[2019-12-12] MEDS: MELATONIN 5 MG TABLETS PO SCH (21:45)
[2019-12-13] MEDS: IBUPROFEN 400 MG TABLET (FP) PO PRN ×3 (01:09→17:28)
[2019-12-13] MEDS: hydrOXYzine PAMOATE 50 MG CAPSULE (FP) PO PRN ×4 (01:11→21:38)
[2019-12-13] MEDS: GABAPENTIN 400 MG CAPSULE PO SCH ×3 (06:27→21:37)
[2019-12-13] MEDS: AMOXICILLIN 500 MG CAPSULE (FP) PO SCH ×3 (06:27→21:37)
[2019-12-13] MEDS: PRENATAL VITAMINS W/ FOLIC ACID TABLET (FP) PO SCH (10:28)
[2019-12-13] MEDS: NICOTINE 21 MG/24 HOURS TOPICAL PATCH TD SCH (10:28)
[2019-12-13] MEDS: ACETAMINOPHEN 325 MG TABLET (FP) PO PRN (14:23)
[2019-12-13] MEDS: NICOTINE POLACRILEX 2 MG GUM BUC PRN (17:28)
[2019-12-13] MEDS: THIAMINE HCL 100 MG TABLET (FP) PO SCH (21:37)
[2019-12-13] MEDS: AMITRIPTYLINE HCL 25 MG TABLET PO SCH (21:37)
[2019-12-13] MEDS: MELATONIN 5 MG TABLETS PO SCH (21:38)
[2019-12-14] MEDS: GABAPENTIN 400 MG CAPSULE PO SCH ×3 (06:29→21:29)
[2019-12-14] MEDS: AMOXICILLIN 500 MG CAPSULE (FP) PO SCH ×3 (06:29→21:29)
[2019-12-14] MEDS: ACETAMINOPHEN 325 MG TABLET (FP) PO PRN (06:30)
[2019-12-14] MEDS: hydrOXYzine PAMOATE 50 MG CAPSULE (FP) PO PRN ×4 (06:30→21:29)
[2019-12-14] MEDS: PRENATAL VITAMINS W/ FOLIC ACID TABLET (FP) PO SCH (09:59)
[2019-12-14] MEDS: NICOTINE 21 MG/24 HOURS TOPICAL PATCH TD SCH (09:59)
[2019-12-14] MEDS: IBUPROFEN 400 MG TABLET (FP) PO PRN ×2 (10:01→19:59)
[2019-12-14] MEDS: THIAMINE HCL 100 MG TABLET (FP) PO SCH (21:29)
[2019-12-14] MEDS: ALBUTEROL SO4 HFA INHALER IH PRN (21:30)
[2019-12-14] MEDS: AMITRIPTYLINE HCL 25 MG TABLET PO SCH (21:30)
[2019-12-14] MEDS: MELATONIN 5 MG TABLETS PO SCH (21:31)
[2019-12-15] MEDS: IBUPROFEN 400 MG TABLET (FP) PO PRN ×2 (04:30→13:20)
[2019-12-15] MEDS: GABAPENTIN 400 MG CAPSULE PO SCH ×3 (06:19→21:45)
[2019-12-15] MEDS: AMOXICILLIN 500 MG CAPSULE (FP) PO SCH ×3 (06:19→21:45)
[2019-12-15] MEDS: hydrOXYzine PAMOATE 50 MG CAPSULE (FP) PO PRN ×4 (06:21→18:18)
[2019-12-15] MEDS: PRENATAL VITAMINS W/ FOLIC ACID TABLET (FP) PO SCH (10:08)
[2019-12-15] MEDS: ACETAMINOPHEN 325 MG TABLET (FP) PO PRN ×2 (10:09→18:18)
[2019-12-15] MEDS: NICOTINE 21 MG/24 HOURS TOPICAL PATCH TD SCH (10:09)
[2019-12-15] MEDS: THIAMINE HCL 100 MG TABLET (FP) PO SCH (21:45)
[2019-12-15] MEDS: AMITRIPTYLINE HCL 25 MG TABLET PO SCH (21:45)
[2019-12-15] MEDS: MELATONIN 5 MG TABLETS PO SCH (21:45)
[2019-12-16] MEDS: AMOXICILLIN 500 MG CAPSULE (FP) PO SCH ×2 (06:13→13:56)
[2019-12-16] MEDS: GABAPENTIN 400 MG CAPSULE PO SCH ×3 (06:13→21:32)
[2019-12-16] MEDS: hydrOXYzine PAMOATE 50 MG CAPSULE (FP) PO PRN ×4 (06:13→21:32)
[2019-12-16] MEDS ORDERED: hydrOXYzine PAMOATE 25 MG CAPSULE (FP) PO ONE (08:51)
[2019-12-16] MEDS: IBUPROFEN 400 MG TABLET (FP) PO PRN ×2 (10:01→22:12)
[2019-12-16] MEDS: PRENATAL VITAMINS W/ FOLIC ACID TABLET (FP) PO SCH (10:01)
[2019-12-16] MEDS: NICOTINE 21 MG/24 HOURS TOPICAL PATCH TD SCH (10:02)
[2019-12-16] MEDS: ACETAMINOPHEN 325 MG TABLET (FP) PO PRN (13:56)
[2019-12-16] MEDS: NICOTINE POLACRILEX 2 MG GUM BUC PRN (13:57)
[2019-12-16] MEDS: MELATONIN 5 MG TABLETS PO SCH (21:32)
[2019-12-16] MEDS: ALBUTEROL SO4 HFA INHALER IH PRN (21:32)
[2019-12-16] MEDS: AMITRIPTYLINE HCL 25 MG TABLET PO SCH (21:32)
[2019-12-16] MEDS: THIAMINE HCL 100 MG TABLET (FP) PO SCH (21:32)
[2019-12-17] MEDS: hydrOXYzine PAMOATE 50 MG CAPSULE (FP) PO PRN ×4 (06:33→21:25)
[2019-12-17] MEDS: GABAPENTIN 400 MG CAPSULE PO SCH ×3 (06:33→21:25)
[2019-12-17] MEDS: ACETAMINOPHEN 325 MG TABLET (FP) PO PRN (06:33)
[2019-12-17] MEDS: NICOTINE 21 MG/24 HOURS TOPICAL PATCH TD SCH (10:26)
[2019-12-17] MEDS: PRENATAL VITAMINS W/ FOLIC ACID TABLET (FP) PO SCH (10:26)
[2019-12-17] MEDS: IBUPROFEN 400 MG TABLET (FP) PO PRN (10:26)
[2019-12-17] MEDS ORDERED: COLLOIDAL OATMEAL 1 BAR EACH TP PRN (11:21)
[2019-12-17] MEDS: METHOCARBAMOL 500 MG TABLET PO PRN ×2 (12:24→21:25)
[2019-12-17] MEDS: TOLNAFTATE 1% CREAM 15 GM TUBE TP SCH ×2 (12:24→21:32)
[2019-12-17] MEDS: MINERAL OIL/PETROLAT/WATER TOPICAL CREAM 113 GM JAR TP SCH (14:41)
[2019-12-17] MEDS: AMITRIPTYLINE HCL 25 MG TABLET PO SCH (21:24)
[2019-12-17] MEDS: THIAMINE HCL 100 MG TABLET (FP) PO SCH (21:25)
[2019-12-17] MEDS: MELATONIN 5 MG TABLETS PO SCH (21:25)
[2019-12-18] MEDS: GABAPENTIN 400 MG CAPSULE PO SCH ×3 (06:21→21:31)
[2019-12-18] MEDS: hydrOXYzine PAMOATE 50 MG CAPSULE (FP) PO PRN ×4 (06:22→21:31)
[2019-12-18] MEDS: NICOTINE 21 MG/24 HOURS TOPICAL PATCH TD SCH (10:23)
[2019-12-18] MEDS: PRENATAL VITAMINS W/ FOLIC ACID TABLET (FP) PO SCH (10:23)
[2019-12-18] MEDS: MINERAL OIL/PETROLAT/WATER TOPICAL CREAM 113 GM JAR TP SCH (10:23)
[2019-12-18] MEDS: TOLNAFTATE 1% CREAM 15 GM TUBE TP SCH ×2 (10:24→21:30)
[2019-12-18] MEDS: ACETAMINOPHEN 325 MG TABLET (FP) PO PRN ×2 (10:25→14:25)
[2019-12-18] MEDS: METHOCARBAMOL 500 MG TABLET PO PRN ×2 (10:26→21:31)
--- NOTE | 2019-12-18 10:49 | PN ---
[facility] Progress Note Note: Patient is scheduled for discharge tomorrow. Scripts for 30 days supply of Amitryptiline 75 mg/hs will be electronically transmitted to [facility], [address] [place], [place] [address] [address]
[2019-12-18] MEDS: MELATONIN 5 MG TABLETS PO SCH (21:31)
[2019-12-18] MEDS: THIAMINE HCL 100 MG TABLET (FP) PO SCH (21:31)
[2019-12-18] MEDS: AMITRIPTYLINE HCL 25 MG TABLET PO SCH (21:31)
[2019-12-18] MEDS: ALBUTEROL SO4 HFA INHALER IH PRN (21:32)
[2019-12-18] MEDS: IBUPROFEN 400 MG TABLET (FP) PO PRN (23:02)
[2019-12-19] MEDS: GABAPENTIN 400 MG CAPSULE PO SCH (06:39)
[2019-12-19] MEDS: hydrOXYzine PAMOATE 50 MG CAPSULE (FP) PO PRN (06:40)
[2019-12-19] MEDS: ACETAMINOPHEN 325 MG TABLET (FP) PO PRN (06:40)
[2019-12-19 07:15] VITALS: BP 109/69; PULSE 66; TEMP 97
[2019-12-19] MEDS: PRENATAL VITAMINS W/ FOLIC ACID TABLET (FP) PO SCH (09:11)
[2019-12-19] MEDS: TOLNAFTATE 1% CREAM 15 GM TUBE TP SCH (09:11)
[2019-12-19] MEDS: MINERAL OIL/PETROLAT/WATER TOPICAL CREAM 113 GM JAR TP SCH (09:11)
[2019-12-19] MEDS: NICOTINE 21 MG/24 HOURS TOPICAL PATCH TD SCH (09:11)
--- NOTE | 2019-12-19 10:45 | DS ---
[facility] Rehab Discharge Summary - [facility] Rehab Discharge Summary Admission Date: 12/06/19 Discharge Date: 12/19/19 - History Present History: Alcohol dependence, Cannabis dependence, Cocaine dependence, Opioid dependence Pertinent Past History: Hep C DJD GERD - Discharge Physical Exam Vital Signs: Vital Signs Temperature 97.0 F L 12/19/19 07:00 Pulse Rate 66 12/19/19 07:00 Respiratory Rate 18 12/19/19 07:00 Blood Pressure 109/69 12/19/19 07:00 O2 Sat by Pulse Oximetry (%) 98 12/19/19 07:00 General:Alert o x 3, WDWN male,nad,denies s/h/i Cardiac:s1 s2,rrr lungs:ctab,well aerated abdomen:+bs,soft,nt, nd MSK:Active FROM,all limbs,No pain; no edema Skin:intact,turgor wnl. Pertinent Admission Physical Exam Findings: Laboratory Tests 12/10/19 08:00 HIV Ag/Ab Combo Qual Negative - Treatment Discharge Condition: Discharge condition good, Rehabilitated safely, Responded well, Outpatient referral accepted Hospital Course: Pt is a 49 y/o male with a hx of ROBYN- admitted to rehab on 12/06/19 from detox and discharging today. - Medication Discharge Medications: Ambulatory Orders Albuterol Sulfate Inhaler - [Ventolin Hfa Inhaler -] 1 - 2 inh PO QID 08/27/16 Amitriptyline HCl [Elavil -] 75 mg PO HS #30 tablet 12/18/19 Gabapentin [Neurontin -] 400 mg PO TID #90 capsule 12/18/19 Amitriptyline HCl [Elavil -] 75 mg PO HS #30 tablet 12/19/19 Gabapentin 400 mg PO TID #90 capsule 12/19/19 - Medication-Assisted Treatment (MAT) Medication-Assisted Treatment (MAT): No - Discharge Instructions Diet, activity, other medical instructions: Diet:Regular Activity: oob ad aidan Other medical instructions; Follow up with CD aftercare as scheduled @ [facility] and primary care at [facility] as needed. - Diagnosis (1) Alcohol use disorder Current Visit: Yes Status: Chronic (2) Cannabis dependence, uncomplicated Current Visit: Yes Status: Chronic (3) Cocaine dependence, uncomplicated Current Visit: Yes Status: Chronic (4) Nicotine dependence Current Visit: Yes Status: Chronic Qualifiers: Nicotine product type: cigarettes Substance use status: uncomplicated Qualified Code(s): F17.210 - Nicotine dependence, cigarettes, uncomplicated (5) Opioid use disorder Current Visit: Yes Status: Chronic (6) Weight loss Current Visit: Yes Status: Acute (7) GERD (gastroesophageal reflux disease) Current Visit: Yes Status: Chronic Qualifiers: Esophagitis presence: esophagitis presence not specified Qualified Code(s): K21.9 - Gastro-esophageal reflux disease without esophagitis (8) History of degenerative disc disease Current Visit: Yes Status: Chronic - Follow-up Referral Minutes to complete discharge: 20 - AMA Did Patient Leave Against Medical Advice: No
== END 2019-12-19 09:50 | disposition home or self-care (01) | DRG 772 ==
LOC: YASAS 18:15 → Y5N 18:16
PROVIDERS: ADMIT Allergy & Immunology; ATTEND Allergy & Immunology
PROC: HZ42ZZZ Group Counseling for Substance Abuse Treatment, Cognitive-Behavioral (ICD-10-PCS; principal; 2019-12-06)
DX: F10.20 Alcohol dependence, uncomplicated (principal); F11.20 Opioid dependence, uncomplicated; F14.20 Cocaine dependence, uncomplicated; F13.20 Sedative, hypnotic or anxiolytic dependence, uncomplicated; F12.20 Cannabis dependence, uncomplicated; F17.210 Nicotine dependence, cigarettes, uncomplicated; F39 Unspecified mood [affective] disorder; F41.9 Anxiety disorder, unspecified; F19.24 Other psychoactive substance dependence with psychoactive substance-induced mood disorder; K21.9 Gastro-esophageal reflux disease without esophagitis; K08.89 Other specified disorders of teeth and supporting structures; K02.9 Dental caries, unspecified; R63.4 Abnormal weight loss; Z56.0 Unemployment, unspecified; Z86.19 Personal history of other infectious and parasitic diseases; Z87.39 Personal history of other diseases of the musculoskeletal system and connective tissue; Z59.0 Homelessness
CPT/HCPCS: 36415; 87389